=== PATIENT | male | born 1965 | race Caucasian/White ===

== ENCOUNTER 2021-05-26 02:12 | Emergency (ER) | payer OTHER ==
[~2021-05-26] VITALS: Ht 182.9 cm; Wt 90.7 kg
== END 2021-05-26 03:05 | disposition home or self-care (01) ==
LOC: ER 02:12
DX: S42.291A Other displaced fracture of upper end of right humerus, initial encounter for closed fracture (principal); S80.212A Abrasion, left knee, initial encounter; S80.211A Abrasion, right knee, initial encounter; W18.39XA Other fall on same level, initial encounter; Y93.89 Activity, other specified; Y92.89 Other specified places as the place of occurrence of the external cause; Y99.8 Other external cause status